=== PATIENT | female | born 1990 | race Caucasian/White ===

== ENCOUNTER 2017-09-24 23:07 | Emergency (ER) | payer MEDICAID ==
[~2017-09-24] VITALS: Ht 172.7 cm; Wt 100.4 kg
[~2017-09-24 23:07] MED LIST: LORT5TAB; SULF1TAB47
[2017-09-24 23:22] VITALS: BP 144/85; PULSE 85; RESP 18; TEMP 98.6
[2017-09-25] VITALS: BP 144/80
--- NOTE | 2017-09-25 00:13 | PD ---
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 She comes in [facility] to see if she is . An at home test was negative. She does have nausea and vomiting for 2 weeks without any diarrhea. She does have a white discharge. She denies any pelvic pain except for an occasional cramp. She denies any vaginal bleeding. PFSH Past Medical History Diminished Hearing: No Social History Alcohol Use: No Tobacco Use: Yes (1/2 PK) Allergies-Medications (Allergen,Severity, Reaction): Coded Allergies: No Known Allergies (Verified Allergy, Mild, 09/25/17) Reported Meds & Prescriptions Reported Meds & Active Scripts Active Review of Systems Except as stated in HPI: all other systems reviewed are Neg Physical Exam Narrative GENERAL: The patient appears slightly dehydrated, alert, oriented 3 in no apparent distress except for the nausea. The blood pressure is 144/85 but the rest of the vital signs are normal. SKIN: Focused skin assessment warm/dry. HEAD: Atraumatic. Normocephalic. EYES: Pupils equal and round. No scleral icterus. No injection or drainage. ENT: No nasal bleeding or discharge. Mucous membranes pink and moist. NECK: Trachea midline. No JVD. CARDIOVASCULAR: Regular rate and rhythm. No murmur appreciated. RESPIRATORY: No accessory muscle use. Clear to auscultation. Breath sounds equal bilaterally. GASTROINTESTINAL: Abdomen soft, non-tender, nondistended. Hepatic and splenic margins not palpable. MUSCULOSKELETAL: No obvious deformities. No clubbing. No cyanosis. No edema. NEUROLOGICAL: Awake and alert. No obvious cranial nerve deficits. Motor grossly within normal limits. Normal speech. PSYCHIATRIC: Appropriate mood and affect; insight and judgment normal. GENITOURINARY: Normal external genitalia without lesions or erythema. Vaginal vault without blood but there is appear white drainage. Cervical os was closed with clear drainage. No cervical motion tenderness. Uterus nontender and nonenlarged. Bilateral adnexa nontender without masses. Data Data Last Documented VS Vital Signs Date Time Temp Pulse Resp B/P (MAP) Pulse Ox O2 Delivery O2 Flow Rate FiO2 4/5/18 01:32 71 16 140/69 (92) 99 Room Air 09/24/17 23:22 98.6 Orders Orders Urinalysis - C+S If Indicated (09/24/17 23:35) Ed Urine Pregnancytest Poc (09/24/17 23:35) Beta Hcg (Quant/Titer) (09/24/17 23:41) Complete Blood Count With Diff (09/24/17 23:41) Basic Metabolic Panel (Bmp) (09/24/17 23:41) Gc And Chlamydia Pcr (09/24/17 23:48) Wet Prep Profile (09/24/17 23:48) Ondansetron Inj (Zofran Inj) (09/25/17 00:45) Sodium Chlor 0.9% 1000 Ml Inj (Ns 1000 M (09/25/17 00:45) Labs Laboratory Tests Test 09/24/17 23:57 09/25/17 00:00 09/25/17 00:09 Clue Cells (Wet Prep) NONE SEEN Vaginal Trichomonas (Wet Prep) NONE SEEN Vaginal Yeast (Wet Prep) NONE SEEN Urine Color YELLOW Urine Turbidity CLEAR Urine pH 6.5 Urine Specific [place] 1.010 Urine Protein NEG mg/dL Urine Glucose (UA) NEG mg/dL Urine Ketones NEG mg/dL Urine Occult Blood TRACE Urine Nitrite NEG Urine Bilirubin NEG Urine Urobilinogen 0.2 MG/DL Urine Leukocyte Esterase NEG Urine RBC 0-3 /hpf Urine WBC 0-2 /hpf Urine Squamous Epithelial Cells > 8 /hpf Urine Bacteria OCC /hpf Microscopic Urinalysis Comment CULT NOT INDICATED White Blood Count 15.3 TH/MM3 Red Blood Count 4.38 MIL/MM3 Hemoglobin 14.1 GM/DL Hematocrit 41.2 % Mean Corpuscular Volume 94.2 FL Mean Corpuscular Hemoglobin 32.3 PG Mean Corpuscular Hemoglobin Concent 34.3 % Red Cell Distribution Width 13.0 % Platelet Count 312 TH/MM3 Mean Platelet Volume 8.3 FL Neutrophils (%) (Auto) 69.3 % Lymphocytes (%) (Auto) 25.8 % Monocytes (%) (Auto) 3.8 % Eosinophils (%) (Auto) 0.5 % Basophils (%) (Auto) 0.6 % Neutrophils # (Auto) 10.6 TH/MM3 Lymphocytes # (Auto) 3.9 TH/MM3 Monocytes # (Auto) 0.6 TH/MM3 Eosinophils # (Auto) 0.1 TH/MM3 Basophils # (Auto) 0.1 TH/MM3 CBC Comment DIFF FINAL Differential Comment Blood Urea Nitrogen 4 MG/DL Creatinine 0.53 MG/DL Random Glucose 90 MG/DL Calcium Level 8.6 MG/DL Sodium Level 137 MEQ/L Potassium Level 3.7 MEQ/L Chloride Level 105 MEQ/L Carbon Dioxide Level 22.5 MEQ/L Anion Gap 10 MEQ/L Estimat Glomerular Filtration Rate 137 ML/MIN MDM Medical Decision Making Medical Screen Exam Complete: Yes Emergency Medical Condition: Yes Medical Record Reviewed: Yes Interpretation(s) The CBC shows a white count of 15,300 but is otherwise normal. The basic metabolic profile is normal. The urinalysis shows occasional bacteria but is otherwise normal and cultures not indicated. The wet prep is negative for trichomonas, yeast and clue cells. The urine test is positive. Differential Diagnosis , PID, ovarian cyst Narrative Course The patient appears to have an intrauterine . She needs to follow-up with OB as soon as possible. The slight elevation of the white count is likely due to . Diagnosis Primary Impression: Intrauterine Additional Instructions: Follow-up with an compositor apprentice as soon as possible. Take the positive test result so that the health department will give you an compositor apprentice. Med/Other Pt SpecificInfo: Prescription(s) given Scripts Ondansetron (Zofran) 4 Mg Tab 4 MG PO Q6HR Y for NAUSEA OR VOMITING, #30 TAB 0 Refills Prov: Stefan Lopez MD 09/25/17 Disposition: 01 DISCHARGE HOME Condition: Stable Stefan Lopez MD Sep 25, 2017 00:13
[2017-09-25 00:17] LABS: BILIRUBIN, URINE NEG (NEG); BLOOD, URINE TRACE (NEG); GLUCOSE,URINE NEG (NEG); KETONE, URINE NEG (NEG); NITRITE,URINE NEG (NEG); PH, URINE 6.5 (5.0-8.5); URINE COLOR YELLOW (YELLW/STRAW); URINE LEUKOCYTE ESTERASE NEG (NEG)
[2017-09-25 00:19] LABS: AUTOMATED NEUTROPHIL # 10.6 TH/MM3 (1.8-7.7); BASOPHIL # 0.1 TH/MM3 (0-0.2); BASOPHIL % 0.6 % (0.0-2.0); EOSINOPHIL # 0.1 TH/MM3 (0-0.4); EOSINOPHIL % 0.5 % (0.0-4.0); HEMATOCRIT 41.2 % (35.0-46.0); HEMOGLOBIN 14.1 GM/DL (11.6-15.3); LYMPH % 25.8 % (9.0-44.0); LYMPHOCYTE # 3.9 TH/MM3 (1.0-4.8); MEAN CELL VOLUME 94.2 FL (80.0-100.0); MEAN CORPUSCULAR HEMOGLOBIN 32.3 PG (27.0-34.0); MEAN CORPUSCULAR HGB CONC 34.3 % (32.0-36.0); MEAN PLATELET VOLUME 8.3 FL (7.0-11.0); MONO % 3.8 % (0.0-8.0); MONOCYTE # 0.6 TH/MM3 (0-0.9); NEUT % 69.3 % (16.0-70.0); PLATELET COUNT 312 TH/MM3 (150-450); RED BLOOD COUNT 4.38 MIL/MM3 (4.00-5.30); WHITE BLOOD COUNT 15.3 TH/MM3 (4.0-11.0)
[2017-09-25 00:25] LABS: BACTERIA, URINE OCC /hpf; RBC, URINE 0-3 /hpf (0-3); SQUAMOUS EPITHELIAL CELL URINE > 8 /hpf (0-5); WBC, URINE 0-2 /hpf (0-5)
[2017-09-25 00:33] LABS: CALCIUM 8.6 MG/DL (8.5-10.1)
[2017-09-25 00:34] LABS: BICARBONATE 22.5 MEQ/L (21.0-32.0)
[2017-09-25 00:37] LABS: CREATININE 0.53 MG/DL (0.50-1.00)
[2017-09-25] MEDS: SODIUM CHLOR 0.9% 1000 ML INJ 1,000 ML IV SCH ×2 (00:38→01:31)
[2017-09-25] MEDS ORDERED: ONDANSETRON HCL 4 MG/2 ML VIAL IV ONE (00:45)
[2017-09-25 01:32] VITALS: BP 140/69; PULSE 71; RESP 16; O2SAT 99
[2017-09-25] MEDS ORDERED: ZOFR4TAB PO (02:33)
[2017-09-25 02:37] VITALS: BP 132/86
== END 2017-09-25 02:45 | disposition home or self-care (01) ==
LOC: PHED 23:07
DX: O21.9 Vomiting of pregnancy, unspecified (principal); O99.331 Smoking (tobacco) complicating pregnancy, first trimester; F17.200 Nicotine dependence, unspecified, uncomplicated; Z34.91 Encounter for supervision of normal pregnancy, unspecified, first trimester
CPT/HCPCS: 80048; 81001; 84702; 84703; 85025; 87210; 87491; 87591; 96361; 96374; 99284; J2405; J7030

== ENCOUNTER 2017-10-10 22:12 | Emergency (ER) | payer MEDICAID ==
[~2017-10-10] VITALS: Ht 162.6 cm; Wt 101.7 kg
[~2017-10-10 22:12] MED LIST changes: -LORT5TAB; -SULF1TAB47; +ZOFR4TAB PO
[2017-10-10 22:17] VITALS: BP 136/75; PULSE 93; RESP 16; TEMP 98.7; O2SAT 99
[2017-10-10 22:33] VITALS: BP 136/75; PULSE 93; RESP 16; TEMP 98.7; O2SAT 99
[2017-10-10 23:25] VITALS: BP 132/72; PULSE 95; RESP 18; O2SAT 98
== END 2017-10-11 00:28 | disposition left against medical advice (07) ==
LOC: PHED 22:12
DX: L02.419 Cutaneous abscess of limb, unspecified (principal); Z53.21 Procedure and treatment not carried out due to patient leaving prior to being seen by health care provider
CPT/HCPCS: 99281